=== PATIENT | female | born 1935 | race Caucasian/White ===

== ENCOUNTER 2017-01-07 21:08 | Emergency (ER) | payer OTHER, MEDICAID ==
[~2017-01-07] VITALS: Ht 160 cm; Wt 82.0 kg
[~2017-01-07 21:08] MED LIST: KEPP500 PO; LEVE500T19 PO; LEVO112T2 PO; PROP40TA7 PO
[2017-01-07] MEDS ORDERED: ACETAMINOPHEN 325MG TABLET PO ONE (22:15)
[2017-01-07 23:50] VITALS: BP 132/54
== END 2017-01-08 00:05 | disposition home or self-care (01) ==
LOC: ER 21:09
DX: L03.116 Cellulitis of left lower limb (principal); R56.9 Unspecified convulsions; I10 Essential (primary) hypertension; D64.9 Anemia, unspecified; E03.9 Hypothyroidism, unspecified; Z79.899 Other long term (current) drug therapy
CPT/HCPCS: 99283

== ENCOUNTER 2017-03-20 21:56 | Emergency (ER) | payer OTHER, MEDICAID ==
[~2017-03-20] VITALS: Ht 160 cm; Wt 84.0 kg
[2017-03-21 02:50] VITALS: BP 117/62
== END 2017-03-21 12:38 | disposition home or self-care (01) ==
LOC: ER 22:34
DX: R04.0 Epistaxis (principal); G40.909 Epilepsy, unspecified, not intractable, without status epilepticus
CPT/HCPCS: 99283; Z7610